=== PATIENT | male | born 2000 | race African-American/Black ===

== ENCOUNTER 2021-12-24 04:00 | Emergency (ER) | payer MEDICAID ==
[~2021-12-24] VITALS: Ht 177.8 cm; Wt 116.1 kg
[2021-12-24 04:09] VITALS: BP 147/79
[2021-12-24] MEDS ORDERED: IBUPROFEN 400 MG TABLET ONE (04:11)
[2021-12-24] MEDS ORDERED: IBUPROFEN 400 MG TABLET PO ONE (04:30)
== END 2021-12-24 04:18 | disposition home or self-care (01) ==
LOC: ER 04:04
DX: M79.605 Pain in left leg (principal); Z60.2 Problems related to living alone

== ENCOUNTER 2021-12-24 10:21 | Emergency (ER) | payer MEDICAID ==
[~2021-12-24] VITALS: Ht 185.4 cm; Wt 129.3 kg
--- NOTE | 2021-12-24 10:30 | NUR ---
SECURITY AT BEDSIDE FOR WANDING
--- NOTE | 2021-12-24 10:36 | NUR ---
TO ER BED 18, BIBS VOLUNTARY TO [facility] WITH SI PLAN TO OD ON PILLS, AAOX3, BREATHING EVEN AND NON LABORED, AWAITING MD PATEL
[2021-12-24 11:01] LABS: BASOPHILS % (AUTO) 0.8 % (0.0-2.0); EOSINOPHILS % (AUTO) 1.7 % (0.0-6.0); HEMATOCRIT 40 % (39-51); HEMOGLOBIN 12.7 g/dL (13.5-17.5); LYMPHOCYTES # (AUTO) 1.6 K/uL (0.8-4.8); LYMPHOCYTES % (AUTO) 27.2 % (20.0-44.0); MEAN CORPUSCULAR HGB CONC 32 g/dl (31.0-36.0); MEAN CORPUSCULAR VOLUME 81 fL (80-96); MONOCYTES # (AUTO) 0.4 K/uL (0.1-1.30); MONOCYTES % (AUTO) 6.8 % (2.0-12.0); NEUTROPHILS # (AUTO) 3.7 K/uL (1.8-8.9); NEUTROPHILS % (AUTO) 63.5 % (43.0-81.0); PLATELET COUNT (AUTO) 178 K/uL (150-450); RED BLOOD CELL COUNT(AUTO) 4.89 MIL/uL (4.5-6.0); WHITE BLOOD COUNT (AUTO) 5.9 K/uL (4.3-11.0)
[2021-12-24 11:06] LABS: BILIRUBIN,URINE SMALL (NEGATIVE); COLOR,URINE YELLOW (YELLOW); LEUKOCYTE ESTERASE ,URINE NEGATIVE (NEGATIVE); NITRITE, URINE NEGATIVE (NEGATIVE); PROTEIN,URINE 100 mg/dl (NEGATIVE); UGLUCOSE NEGATIVE (NEGATIVE); UROBILINOGEN,URINE 0.2 EU/dL (0.2)
[2021-12-24 11:20] LABS: ALANINE AMINOTRANSFERASE 45 U/L (12-78); ALCOHOL, BLOOD < 3 mg/dL (0-0); ALKALINE PHOSPHATASE 80 U/L (46-116); ASPARTATE AMINOTRANSFERASE 49 U/L (15-37); BILIRUBIN,DIRECT 0.1 mg/dL (0.0-0.2); BILIRUBIN,TOTAL 0.3 mg/dL (0.2-1.0); CALCIUM, SERUM 9.3 mg/dL (8.5-10.1); CARBON DIOXIDE 28 mmol/L (21-32); CHLORIDE 105 mmol/L (98-107); GLUCOSE 101 mg/dL (74-106); POTASSIUM 3.7 mmol/L (3.5-5.1); SODIUM SERUM 139 mmol/L (136-145); TOTAL PROTEIN, SERUM 8.4 g/dL (6.4-8.2); UREA NITROGEN, BLOOD 19 mg/dL (7-18)
[2021-12-24 11:23] LABS: BACTERIA,URINE Few /HPF (None Seen); SPERM,URINE Many /HPF (None Seen)
[2021-12-24 11:30] LABS: ACETAMINOPHEN < 10 ug/ml (10-30)
--- NOTE | 2021-12-24 13:02 | NUR ---
FAXED CLINICALS TO [facility].
--- NOTE | 2021-12-24 14:45 | NUR ---
CALLED [facility] FOR FOLLOW UP, CASE STILL UNDER REVIEW PER BRIANNA.
--- NOTE | 2021-12-24 17:05 | NUR ---
pt was accepted at [facility]. pt does not was to be admitted to [facility]. pt states he just wants be discharge. dr cordoba made aware. discharge from ED in stable condition.
[2021-12-24 18:24] VITALS: BP 132/87
== END 2021-12-24 17:05 | disposition home or self-care (01) ==
LOC: ER 10:22
DX: R45.851 Suicidal ideations (principal); Z20.822 Contact with and (suspected) exposure to COVID-19
CPT/HCPCS: 99285; 85025; 80048; 87086; 80076; 81001; 36415; 87426; 80143; 80320; 80307; C9803; G0480

== ENCOUNTER 2022-03-30 23:13 | Emergency (ER) | payer MEDICAID, OTHER ==
[~2022-03-30] VITALS: Ht 182.9 cm; Wt 129.3 kg
--- NOTE | 2022-03-31 01:38 | NUR ---
BIBS TO ER BED 18. AAOX4. AMBULATORY. NOT IN ANY DISTRESS. CAME IN FOR MEDICAL CLEARANCE FOR SUICIDAL IDEATION WITHOUT SPECIFIC PLAN. PT DENIES ANY HOMICIDAL IDEATION. PT WAS GOWNED, BELONGINGS PLACED IN LOCKER, VISUALLY INSPECTED AND WANDED. SITTER IS WITHIN SIGHT. WAS AT [facility] BEDSIDE FOR EVAL. ORDERS RECEIVED. COVID SWABBED AND URINE COLLECTED.
[2022-03-31 02:22] LABS: BILIRUBIN,URINE NEGATIVE (NEGATIVE); COLOR,URINE YELLOW (YELLOW); LEUKOCYTE ESTERASE ,URINE NEGATIVE (NEGATIVE); NITRITE, URINE NEGATIVE (NEGATIVE); PROTEIN,URINE 1+ mg/dl (NEGATIVE); UGLUCOSE NEGATIVE (NEGATIVE); UROBILINOGEN,URINE 0.2 EU/dL (0.2)
[2022-03-31 02:24] LABS: BACTERIA,URINE Few /HPF (None Seen); HYALINE CASTS, URINE Few /LPF (None Seen); RBC,URINE 0-2 /HPF (0-2); SQUAMOUS EPITHELIAL CELL,UR Few /HPF (None Seen)
[2022-03-31 02:28] LABS: BASOPHILS % (AUTO) 0.1 % (0.0-2.0); EOSINOPHILS % (AUTO) 2.6 % (0.0-6.0); HEMATOCRIT 42 % (39-51); HEMOGLOBIN 13.3 g/dL (13.5-17.5); LYMPHOCYTES # (AUTO) 2.1 K/uL (0.8-4.8); MEAN CORPUSCULAR HGB CONC 32 g/dl (31.0-36.0); MEAN CORPUSCULAR VOLUME 81 fL (80-96); MONOCYTES # (AUTO) 0.4 K/uL (0.1-1.30); MONOCYTES % (AUTO) 8.6 % (2.0-12.0); NEUTROPHILS # (AUTO) 2.1 K/uL (1.8-8.9); NEUTROPHILS % (AUTO) 43.7 % (43.0-81.0); PLATELET COUNT (AUTO) 147 K/uL (150-450); RED BLOOD CELL COUNT(AUTO) 5.15 MIL/uL (4.5-6.0); WHITE BLOOD COUNT (AUTO) 4.8 K/uL (4.3-11.0)
[2022-03-31 02:31] LABS: CALCIUM, SERUM 9.2 mg/dL (8.5-10.1); CARBON DIOXIDE 26 mmol/L (21-32); CHLORIDE 101 mmol/L (98-107); CREATININE 0.9 mg/dL (0.6-1.3); GLUCOSE 99 mg/dL (74-106); POTASSIUM 3.9 mmol/L (3.5-5.1); SODIUM SERUM 135 mmol/L (136-145); UREA NITROGEN, BLOOD 17 mg/dL (7-18)
[2022-03-31 02:38] LABS: ALBUMIN 3.8 g/dL (3.4-5.0); ALCOHOL, BLOOD < 3 mg/dL (0-0); ALKALINE PHOSPHATASE 80 U/L (46-116); ASPARTATE AMINOTRANSFERASE 25 U/L (15-37)
[2022-03-31 02:39] LABS: ACETAMINOPHEN < 10 ug/ml (10-30)
[2022-03-31 03:27] LABS: ALANINE AMINOTRANSFERASE 34 U/L (12-78); BILIRUBIN,DIRECT 0.1 mg/dL (0.0-0.2); BILIRUBIN,TOTAL 0.2 mg/dL (0.2-1.0)
[2022-03-31 07:30] VITALS: BP 135/76
--- NOTE | 2022-03-31 07:46 | NUR ---
PT ABLE TO BE AWAKENED, NOT IN ACUTE DISTRESS.
--- NOTE | 2022-03-31 08:36 | NUR ---
[facility] faxed clinicals to FAX:[phone] for voluntary psychiatric treatment at [facility] [[facility] [place] [address] ]. [facility] called their intake and spoke to Bert.
--- NOTE | 2022-03-31 14:00 | NUR ---
Patient eloped from facility. ER MD notified.
== END 2022-03-31 14:36 | disposition left against medical advice (07) ==
LOC: ER 23:18
DX: R45.851 Suicidal ideations (principal); Z20.822 Contact with and (suspected) exposure to COVID-19; Z53.29 Procedure and treatment not carried out because of patient's decision for other reasons
CPT/HCPCS: 99285; 85025; 80048; 80076; 81001; 36415; 87426; 80143; 80320; 80307; C9803; G0480

== ENCOUNTER 2024-09-06 20:13 | Emergency (ER) | payer OTHER | END 2024-09-06 21:24 | disposition left against medical advice (07) | LOC: ER 20:24 | DX: Z00.00 Encounter for general adult medical examination without abnormal findings (principal); Z53.21 Procedure and treatment not carried out due to patient leaving prior to being seen by health care provider ==

== ENCOUNTER 2024-09-23 06:04 | Emergency (ER) | payer OTHER ==
[~2024-09-23] VITALS: Ht 185.4 cm; Wt 95.3 kg
[2024-09-23 06:56] VITALS: BP 122/70; TEMP 98; O2SAT 98
== END 2024-09-23 07:21 | disposition left against medical advice (07) ==
LOC: ER 06:06
DX: S86.112A Strain of other muscle(s) and tendon(s) of posterior muscle group at lower leg level, left leg, initial encounter (principal); F32.A Depression, unspecified; F41.9 Anxiety disorder, unspecified; Z60.2 Problems related to living alone; W21.05XA Struck by basketball, initial encounter; Y93.67 Activity, basketball; Y92.89 Other specified places as the place of occurrence of the external cause; Y99.8 Other external cause status

== ENCOUNTER 2024-10-01 04:28 | Emergency (ER) | payer OTHER ==
[~2024-10-01] VITALS: Ht 185.4 cm; Wt 95.3 kg
[2024-10-01 04:44] VITALS: BP 145/86; TEMP 98
[2024-10-01] MEDS ORDERED: ONDA4TAB5 PO (04:50)
[2024-10-01] MEDS ORDERED: DICY10CA37 PO (04:50)
[2024-10-01] MEDS ORDERED: PANT40TA2 PO (04:50)
[2024-10-01 05:16] LABS: PLATELET COUNT (AUTO) 115 K/uL (150-450); RED BLOOD CELL COUNT(AUTO) 4.71 MIL/uL (4.5-6.0); RED CELL DISTRIBUTION WIDTH 14.6 % (11.5-15.0); WHITE BLOOD COUNT (AUTO) 3.1 K/uL (4.3-11.0)
[2024-10-01] MEDS ORDERED: DICYCLOMINE HCL 10 MG CAPSULE PO ONE (05:21)
[2024-10-01] MEDS ORDERED: ONDANSETRON 4 MG TAB.RAPDIS ONE (05:21)
[2024-10-01] MEDS ORDERED: PANTOPRAZOLE 40 MG TABLET.DR PO ONE (05:22)
[2024-10-01 05:24] LABS: ASPARTATE AMINOTRANSFERASE 41 U/L (15-37); CALCIUM, SERUM 8.7 mg/dL (8.5-10.1); CREATININE 0.8 mg/dL (0.6-1.3); SODIUM SERUM 143 mmol/L (136-145); UREA NITROGEN, BLOOD 16 mg/dL (7-18)
[2024-10-01 05:25] LABS: TOTAL PROTEIN, SERUM 7.1 g/dL (6.4-8.2)
[2024-10-01] MEDS: PANTOPRAZOLE 40 MG TABLET.DR PO ONE (05:27)
[2024-10-01] MEDS: DICYCLOMINE HCL 10 MG CAPSULE PO ONE (05:27)
[2024-10-01] MEDS: ONDANSETRON 4 MG TAB.RAPDIS PO ONE (05:27)
[2024-10-01 05:43] VITALS: O2SAT 97
== END 2024-10-01 05:43 | disposition home or self-care (01) ==
LOC: ER 04:29
DX: R10.9 Unspecified abdominal pain (principal); R11.0 Nausea; F32.A Depression, unspecified; F41.9 Anxiety disorder, unspecified; Z60.2 Problems related to living alone; Z59.00 Homelessness unspecified; Z79.899 Other long term (current) drug therapy
CPT/HCPCS: 99283; 85025; 83690; 83735; 36415; 80053; 86140; Q0162

== ENCOUNTER 2024-10-18 22:41 | Emergency (ER) | payer OTHER ==
[~2024-10-18] VITALS: Ht 182.9 cm; Wt 104.3 kg
[~2024-10-18 22:41] MED LIST: DICY10CA37 PO; ONDA4TAB5 PO; PANT40TA2 PO
[2024-10-18 22:49] VITALS: TEMP 98.4
[2024-10-18 23:21] LABS: PLATELET COUNT (AUTO) 118 K/uL (150-450); RED BLOOD CELL COUNT(AUTO) 4.37 MIL/uL (4.5-6.0); RED CELL DISTRIBUTION WIDTH 14.4 % (11.5-15.0); WHITE BLOOD COUNT (AUTO) 3.6 K/uL (4.3-11.0)
[2024-10-18 23:21] LABS: APPEARANCE,URINE CLEAR (CLEAR); BLOOD, URINE NEGATIVE Ery/uL (NEGATIVE); LEUKOCYTE ESTERASE ,URINE NEGATIVE (NEGATIVE); NITRITE, URINE NEGATIVE (NEGATIVE); UGLUCOSE NEGATIVE (NEGATIVE)
[2024-10-18 23:29] LABS: CALCIUM, SERUM 8.9 mg/dL (8.5-10.1); CREATININE 1.0 mg/dL (0.6-1.3); SODIUM SERUM 142 mmol/L (136-145); UREA NITROGEN, BLOOD 18 mg/dL (7-18)
[2024-10-18 23:35] LABS: ASPARTATE AMINOTRANSFERASE 51 U/L (15-37); TOTAL PROTEIN, SERUM 7.2 g/dL (6.4-8.2)
[2024-10-18 23:36] LABS: ALCOHOL, BLOOD < 3 mg/dL (0-10)
[2024-10-18 23:47] LABS: ADD URINE CULTURE NO; SQUAMOUS EPITHELIAL CELL,UR Moderate /HPF (None Seen)
[2024-10-19] MEDS ORDERED: CITALOPRAM HYDROBROMIDE 20 MG TABLET ONE (01:05)
[2024-10-19] MEDS: CITALOPRAM HYDROBROMIDE 20 MG TABLET PO STA (01:09)
[2024-10-19 01:24] LABS: AMPHETAMINE, URINE NEGATIVE (NEGATIVE); BARBITURATE, URINE NEGATIVE (NEGATIVE); BENZODIAZEPINE, URINE NEGATIVE (NEGATIVE); CANNABINOID, URINE NEGATIVE (NEGATIVE); COCCAINE, URINE NEGATIVE (NEGATIVE); OPIATE, URINE NEGATIVE (NEGATIVE)
[2024-10-19 07:56] VITALS: BP 124/70; O2SAT 97
== END 2024-10-19 07:56 | disposition home or self-care (01) ==
LOC: ER 22:46
DX: F32.A Depression, unspecified (principal); F41.9 Anxiety disorder, unspecified; Z79.899 Other long term (current) drug therapy; Z60.2 Problems related to living alone; Z20.822 Contact with and (suspected) exposure to COVID-19
CPT/HCPCS: 36415; 80048-TC; 80076-TC; 81001; 85025-TC; G0480

== ENCOUNTER 2024-10-25 00:01 | Emergency (ER) | payer OTHER | END 2024-10-25 02:59 | disposition left against medical advice (07) | LOC: ER 00:03 | DX: Z13.9 Encounter for screening, unspecified (principal); Z53.21 Procedure and treatment not carried out due to patient leaving prior to being seen by health care provider ==

== ENCOUNTER 2024-10-31 17:14 | Emergency (ER) | payer OTHER | END 2024-10-31 20:01 | disposition left against medical advice (07) | LOC: ER 17:17 | DX: R45.851 Suicidal ideations (principal); Z53.21 Procedure and treatment not carried out due to patient leaving prior to being seen by health care provider ==

== ENCOUNTER 2025-02-04 04:50 | Emergency (ER) | payer OTHER ==
[~2025-02-04] VITALS: Ht 185.4 cm; Wt 95.3 kg
[2025-02-04 06:07] LABS: PLATELET COUNT (AUTO) 132 K/uL (150-450); RED BLOOD CELL COUNT(AUTO) 5.15 MIL/uL (4.5-6.0); RED CELL DISTRIBUTION WIDTH 14.2 % (11.5-15.0); WHITE BLOOD COUNT (AUTO) 3.2 K/uL (4.3-11.0)
[2025-02-04 06:13] LABS: CALCIUM, SERUM 8.7 mg/dL (8.5-10.1); CREATININE 0.9 mg/dL (0.6-1.3); SODIUM SERUM 141 mmol/L (136-145); UREA NITROGEN, BLOOD 19 mg/dL (7-18)
[2025-02-04 06:21] LABS: ALCOHOL, BLOOD < 3 mg/dL (0-10); ASPARTATE AMINOTRANSFERASE 40 U/L (15-37); TOTAL PROTEIN, SERUM 8.4 g/dL (6.4-8.2)
[2025-02-04 07:21] VITALS: BP 125/88; TEMP 97.9; O2SAT 100
[2025-02-04 10:55] LABS: APPEARANCE,URINE CLEAR (CLEAR); BLOOD, URINE NEGATIVE Ery/uL (NEGATIVE); LEUKOCYTE ESTERASE ,URINE NEGATIVE (NEGATIVE); NITRITE, URINE NEGATIVE (NEGATIVE); UGLUCOSE NEGATIVE (NEGATIVE)
[2025-02-04 10:57] LABS: AMPHETAMINE, URINE NEGATIVE (NEGATIVE); BARBITURATE, URINE NEGATIVE (NEGATIVE); BENZODIAZEPINE, URINE NEGATIVE (NEGATIVE); CANNABINOID, URINE NEGATIVE (NEGATIVE); COCCAINE, URINE NEGATIVE (NEGATIVE); OPIATE, URINE NEGATIVE (NEGATIVE)
[2025-02-04 11:05] LABS: ADD URINE CULTURE NO
== END 2025-02-04 12:01 | disposition home or self-care (01) ==
LOC: ER 04:52
DX: F32.A Depression, unspecified (principal); Z79.899 Other long term (current) drug therapy
CPT/HCPCS: 36415; 80048-TC; 80076-TC; 81001; 85025-TC; G0480